=== PATIENT | male | born 1945 | race Two or more races ===

== ENCOUNTER 2024-02-23 13:43 | Emergency (ER) | payer OTHER ==
[~2024-02-23] VITALS: Ht 165.1 cm; Wt 63.6 kg
[2024-02-23 13:47] VITALS: TEMP 97.7
[2024-02-23 14:05] VITALS: BP 119/67; PULSE 61; RESP 15; O2SAT 98
[2024-02-23] MEDS ORDERED: ACET-66 PO (14:16)
[2024-02-23] MEDS ORDERED: PERM60CR4 TP (14:16)
[2024-02-23] MEDS ORDERED: DIPH-1243 PO (14:16)
== END 2024-02-23 15:54 | disposition home or self-care (01) ==
LOC: EMS 13:57
DX: L30.9 Dermatitis, unspecified (principal)
CPT/HCPCS: 99282; Z7502